=== PATIENT | male | born 1960 | race Asian ===

== ENCOUNTER → 2016-09-28 | Day surgery (SDC) | payer OTHER ==
[~2016-09-28] MED LIST: BOSWTAB2 PO; BUPIVACAINE HCL PF 0.75% 30 ML VIAL ONE; LACTATED RINGER'S 1000 ML INJ 1,000 ML ONE; LIDOCAINE 1.5%/EPINEPHrine 1:200,000 PF SOLN 30 ML AMP ONE; MEPERIDINE HCL 50 MG/ML VIAL ONE; MIDAZOLAM HCL 2 MG/2 ML VIAL ONE; ONDANSETRON HCL 4 MG/2 ML VIAL IV PUSH ONE; OYST500T77 PO; PROPOFOL 200 MG/20 ML AMP IV ONE; VITA200017 PO; ceFAZolin 2 GM PREMIX 50 ML ONE
--- NOTE | 2016-09-29 21:28 | MP ---
cc: ELIZABETH NICHOLSON DPM DATE OF SURGERY 09/28/16 DATE OF 1960 PREOPERATIVE DIAGNOSIS Right ankle arthritis. POSTOPERATIVE DIAGNOSIS Right ankle arthritis PROCEDURE Right ankle fusion with screw fixation. COMPLICATIONS None SPECIMENS None ESTIMATED BLOOD LOSS 10 mL. Tourniquet Right thigh tourniquet at 300 mmHg for 117 minutes ANESTHESIA General with a postop popliteal block. INDICATIONS This patient is a 56-year-old male with a chief complaint of painful right ankle arthritis with immobility unable to bend his ankle and ambulate normally. He is requesting surgical intervention of the problem at this time due to pain and loss of function. The patient understands the procedure today. Risk included nerve damage, infection, failure to fuse, blood clot, wound dehiscence. The patient understands these and would like to proceed. Consent was signed preoperatively. PROCEDURE IN DETAIL Patient was brought to [facility] operating room and placed on the operating table in supine position. Pneumatic right thigh tourniquet was placed. The foot was scrubbed, prepped and draped in usual sterile fashion. First, attention was directed in which a 10 cm incision was made slightly lateral to tib anterior tendon. Care was taken to avoid all vital structures with sharp deep dissection. The tendon sheath of the tib anterior was hugged laterally and once to level deep, bleeders were cauterized and the EHL and neurovascular structures were distracted laterally in the tib anteriorly medially andm, once the level of ankle capsule was found to be unclear tissue planes, a lot of synovitis around the ankle. A rongeur was used to remove that. Once to the level of the ankle, osteotomes, curettes and sagesal was used to remove all the cartilage on both the tibia and talus and medial and lateral gutters. Next, a K-wire was used to fenestrate the joint at the tibia and talus. There was found to be some difficulties in getting the talus pushed back posteriorly. It was distracted and found to just have some soft tissue and bony blockage that was smoothed out. Next, under C-arm guidance K-wire was used to go from medial tibia into the talus. It was found to have good position. There was a slight gapping in the joint. Therefore, bone putty was applied within the joint and compressed as much as possible. Arthrex cannulated partially threaded screw was thrown from the tibia of the talus and the joint was found to have good compression. C-arm showed a mild gapping, but clinically there was no gap seen and a nice compression of the joint. Next, another K-wire was thrown from anterior tibia into the posterior portion of the dome of the talus. An Arthrex cannulated partially threaded screw was thrown across with good compression. C-arm was used to reveal good position. The heel was in neutral position, although the talar dome looked slightly anterior to the tibia, on clinical exam there was plenty of surface area on the talus and tibia and found to be in acceptable position. Next, a lateral tibia to talus screw was thrown and partially threaded Arthrex screw was applied. There was found to be excellent compression of the joint and excellent fixation. The area was lightly flushed and then the joint was flushed before bone putty and fixation was added. It was again unclear the tissue planes, therefore, the deep capsule was closed as much as possible and the retinaculum anteriorly of the ankle was well approximated. Next, Vicryl was used to close the subcutaneous tissue and nylon was used to close the skin and nylon was used to close the holes where the percutaneous screws were applied. Mastisol and Steri-Strips were applied to the incision and Adaptic, 4x4, ABD, cast padding and a posterior splint was applied and a popliteal block was performed postoperatively by anesthesia and the patient handled anesthesia well. DAVIDSON Cam/ /1:13 PM /9:03 PM
== END | disposition home or self-care (01) ==
LOC: ESDC 09:13
PROVIDERS: ATTEND Podiatrist Foot & Ankle Surgery
DX: M19.071 Primary osteoarthritis, right ankle and foot (principal)
CPT/HCPCS: 01480; 27870; 73600; 76000; C1713; J0690; J2175; J2250; J2405; J3010; J7120